=== PATIENT | male | born 1960 | race Caucasian/White ===

== ENCOUNTER 2018-01-13 07:25 | Day surgery (SDC) | payer BC ==
--- NOTE | 2018-01-13 07:28 | PDHPUP ---
History & Physical Update H&P update statement: This history and physical update is based on an assessment of the patient which was completed after admission or registration (within 24 hours), but prior to the surgery/procedure. H&P update: H&P reviewed & patient examined, no change in patient's condition since H&P completed
--- NOTE | 2018-01-13 07:29 | POSTOPPROG ---
Post Op Note Date of Operation: 01/13/18 Surgeon: Gautam Munoz Anesthesia: IV Sedation Pre-op Diagnosis: umbilical hernia Post-op Diagnosis: incarcerated umbilical hernia Procedure: umbilical hernia repair Findings: incarcerated omentum with tight 2cm neck Inf/Abcess present in the surg proc area at time of surgery?: No EBL: Minimal Specimen(s): none
[2018-01-13] MEDS ORDERED: LIDOCAINE 1% 2 ML INJ ID PRN (07:36)
[2018-01-13] MEDS ORDERED: LR 1,000 ML IV ONE (07:36)
[2018-01-13 08:15] LABS: INR 1.15 (0.83-1.16); PROTIME(PATIENT) 14.9 SEC (12.0-15.0)
[2018-01-13] MEDS ORDERED: LIDOCAINE/EPINEPHRINE 0.5% 50 ML MDV ONE (08:33)
[2018-01-13] MEDS ORDERED: BUPIVACAINE/EPI 0.5% 30 ML SDV ONE (08:33)
--- NOTE | 2018-01-13 08:35 | PDANEPAE ---
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 - Neurologic History Hx Cerebrovascular Accident: No Hx Seizures: No Hx Dementia: No - Endocrine History Hx Diabetes: No Endocrine History Comment: THYROIDECTOMY - Renal History Hx Renal Disorders: No - Liver History Hx Hepatic Disorders: No - Neurological & Psychiatric Hx Hx Neurological and Psychiatric Disorders: No - Cancer History Hx Cancer: No Cancer History Comment: THYROID - Congenital Disorder History Hx Congenital Disorders: No - GI History Hx Gastrointestinal Disorders: No - Other Health History Other Health History: NEG - Chronic Pain History Chronic Pain: Yes - Surgical History Prior Surgeries: 2008 THYROIDECTOMY. 1984 HERNIA REPAIR ANE Review of Systems Review of Systems: - Exercise capacity METS (RN): 4 METS ANE Patient History - Allergies Allergies/Adverse Reactions: No Known Allergies Allergy (Unverified 01/04/18 12:49) - Home Medications Home Medications: Anoro Ellipta 62.5-25 Mcg INH 01/04/18 [Last Taken 01/12/18] Levothyroxine 01/04/18 [Last Taken 01/13/18] Multivitamins 01/04/18 [Last Taken 01/06/18] Proair Hfa 01/04/18 [Last Taken 01/12/18] Prolastin C 01/04/18 [Last Taken 01/10/18] Warfarin Sodium 01/04/18 [Last Taken 01/11/18] Eliquis 01/13/18 [Last Taken 01/12/18] Hydrochlorothiazide 01/13/18 [Last Taken 01/12/18] - NPO status NPO Since - Liquids (Date): 01/13/18 NPO Since - Liquids (Time): 06:00 NPO Since - Solids (Date): 01/12/18 NPO Since - Solids (Time): 07:00 - Smoking Hx Smoking Status: Never smoked - Family Anes Hx Family Hx Anesthesia Complications: NEG ANE Labs/Vital Signs - Vital Signs Blood Pressure: 120/91 Heart Rate: 92 Respiratory Rate: 15 O2 Sat (%): 91 Height: 175.26 cm Weight: 78.471 kg ANE Physical Exam - Airway Mallampati Score: Class 2 - ASA Status ASA Status: II ANE Anesthesia Plan Anesthesia Plan: MAC Total IV Anesthesia: Yes
[2018-01-13] MEDS ORDERED: LIDO/EPI 1% **for epidural** 30 ML SDV ONE (08:36)
[2018-01-13] MEDS ORDERED: fentaNYL 100 MCG/2 ML INJ ONE (08:38)
[2018-01-13] MEDS ORDERED: MIDAZOLAM 2 MG/2 ML VIAL ONE (08:38)
[2018-01-13] MEDS ORDERED: PROPOFOL/EMULSION 500 MG/50 ML BOTTLE IV ONE (08:38)
[2018-01-13] MEDS ORDERED: KETOROLAC 30 MG/1 ML SDV ONE (08:38)
[2018-01-13] MEDS ORDERED: ONDANSETRON 4 MG/2 ML VIAL ONE (08:39)
[2018-01-13] MEDS ORDERED: METOCLOPRAMIDE 10 MG/2 ML VIAL IVP PRN (09:22)
[2018-01-13] MEDS ORDERED: PROMETHAZINE HCL 25 MG/ML INJ IVP PRN (09:22)
[2018-01-13] MEDS ORDERED: NALOXONE HCL 0.4 MG/ML INJ IVP PRN (09:22)
[2018-01-13] MEDS ORDERED: fentaNYL 100 MCG/2 ML INJ IVP PRN (09:22)
--- NOTE | 2018-01-13 09:23 | POSTANESTH ---
Post Anesthetic Evaluation Cardiovascular Status: Normal, Stable Respiratory Status: Normal, Stable Level of Consciousness/Mental Status: Can Participate in Eval Pain Control: Adequate, Prn Tx Ordered Nausea/Vomiting Control: Adequate, Prn Tx Ordered Complications Possibly Related to Anesthesia: None Noted
[2018-01-13 10:04] VITALS: BP 101/80
--- NOTE | 2018-01-13 10:13 | GOP ---
DATE OF OPERATION: 01/13/2018 SURGEON: Gautam Munoz MD ROBOTICS SYSTEMS ENGINEER: Yara Raygoza PA-C ANESTHESIA: MAC. ANESTHESIOLOGIST: Dewayne Yoo MD PREOPERATIVE DIAGNOSIS: Umbilical hernia. POSTOPERATIVE DIAGNOSIS: Incarcerated umbilical hernia. PROCEDURE PERFORMED: Umbilical herniorrhaphy. FINDINGS: See below. INDICATIONS: 57-year-old male with a symptomatic umbilical hernia. He is undergoing surgical repair at this time. Risks and benefits were explained including bleeding, infection, recurrence, as well as bowel injury. All questions were answered. He desires to proceed. A surgical elastic knitter is standard and necessary and customary for the safe performance of this procedure. DESCRIPTION OF PROCEDURE: Monitored anesthesia was started. The abdomen was pre-injected with 0.5% Marcaine with epinephrine. A curvilinear infraumbilical incision was created. An incarcerated 2 cm defect with a portion of omentum was present. The omentum was excised back to the tight neck and removed from the field. The sac was cleared back to healthy-appearing fascial edges. The small bowel was reduced back to the abdominal cavity. A 1.7 inch Ventralex mesh was inserted subfascially after clearing the underside of the abdominal wall. This was closed transversely with a running Vicryl suture. Satisfactory hemostasis was assured. Complete coverage of the defect was obtained. The wound was closed in layers with absorbable sutures followed by Dermabond. The patient was taken to the recovery room uneventfully. /[id number]/MODL MTDD
== END 2018-01-13 10:48 | disposition home or self-care (01) ==
LOC: FSGY 07:25
PROVIDERS: ATTEND Surgery
PROC: 0WQF0ZZ Repair Abdominal Wall, Open Approach (ICD-10-PCS; principal; 2018-01-13 09:00)
DX: K42.0 Umbilical hernia with obstruction, without gangrene (principal); E03.9 Hypothyroidism, unspecified; J44.9 Chronic obstructive pulmonary disease, unspecified; E88.01 Alpha-1-antitrypsin deficiency; Z86.711 Personal history of pulmonary embolism; Z79.01 Long term (current) use of anticoagulants; Z85.850 Personal history of malignant neoplasm of thyroid
CPT/HCPCS: C1781; J1885; J2250; J2405; J2704; J3010

== ENCOUNTER → 2018-09-27 | Outpatient (CLI) | payer BC | LOC: BRMIMAGING 07:40 ==